=== PATIENT | female | born 1990 | race Caucasian/White ===

== ENCOUNTER 2022-02-06 14:03 | Emergency (ER) | payer OTHER ==
[~2022-02-06] VITALS: Ht 157.5 cm; Wt 111.8 kg
[~2022-02-06 14:03] MED LIST: BUSP10TA; CLAR10CA3 PO; DIVA500T94; DULO1CAP4 PO; DULO1CAP6; FAMO20TA PO; PRED20TA PO; PROAAER10 INH; TOPI25TA10 PO
[2022-02-06 16:43] VITALS: BP 133/9
== END 2022-02-06 16:44 | disposition home or self-care (01) ==
LOC: M ED 14:03
DX: R07.89 Other chest pain (principal); K21.9 Gastro-esophageal reflux disease without esophagitis; F41.9 Anxiety disorder, unspecified; F32.9 Major depressive disorder, single episode, unspecified; Z88.0 Allergy status to penicillin

== ENCOUNTER → 2023-04-01 | Outpatient (REF) ==
[2023-04-01 15:21] LABS: RSV AMPLIFICATION NEGATIVE (NEGATIVE)
== END ==
LOC: M EMP 13:37
PROVIDERS: ATTEND Family Medicine
DX: Z11.52 Encounter for screening for COVID-19 (principal)

== ENCOUNTER → 2023-05-08 | Outpatient (REF) | LOC: M EMP 11:19 | PROVIDERS: ATTEND Family Medicine | DX: Z11.52 Encounter for screening for COVID-19 (principal) ==

== ENCOUNTER 2023-07-25 20:56 | Emergency (ER) | payer OTHER ==
[~2023-07-25] VITALS: Ht 157.5 cm; Wt 108.8 kg
[2023-07-25 21:52] LABS: HEMATOCRIT 43.1 % (36.0-47.0); MEAN CORPUSCULAR HEMOGLOBIN 29.2 pg (27.0-33.0); MEAN CORPUSCULAR HGB CONC 32.5 g/dl (32.0-36.5); MEAN CORPUSCULAR VOLUME 89.8 fl (80.0-96.0); PLATELET COUNT, AUTOMATED 297 10^3/uL (150-450); WHITE BLOOD COUNT 13.4 10^3/uL (4.0-10.0)
[2023-07-25 22:17] LABS: BARBITURATES URINE NEGATIVE (NEGATIVE); CANNABINOIDS URINE NEGATIVE (NEGATIVE); COCAINE METABOLITE URINE NEGATIVE (NEGATIVE); METHADONE URINE NEGATIVE (NEGATIVE); OPIATES URINE NEGATIVE (NEGATIVE); PHENCYCLIDINE URINE NEGATIVE (NEGATIVE)
[2023-07-25 22:18] LABS: AMPHETAMINES LEVEL URINE NEGATIVE (NEGATIVE); BENZODIAZEPINES URINE NEGATIVE (NEGATIVE)
[2023-07-25 22:20] LABS: ETHYL ALCOHOL (ETHANOL) < 0.003 % (0.000-0.010)
[2023-07-25 22:21] LABS: HCG, SERUM QUALITATIVE NEGATIVE (NEGATIVE); SALICYLATE LEVEL < 3.0 MG/DL (<30)
[2023-07-25 22:22] LABS: ACETAMINOPHEN LEVEL < 2.0 UG/ML (10.0-20.0); ALBUMIN 3.7 G/DL (3.2-5.2); ALKALINE PHOSPHATASE 85 U/L (46-116); ALT/SGPT 17 U/L (7.0-40); AST/SGOT 8 U/L (<34); BILIRUBIN,DIRECT 0.1 MG/DL (<0.4); BILIRUBIN,TOTAL 0.3 MG/DL (0.3-1.2); BLOOD UREA NITROGEN 11 MG/DL (9-23); CALCIUM LEVEL 9.4 MG/DL (8.5-10.1); CARBON DIOXIDE LEVEL 28 MMOL/L (20-31); CHLORIDE LEVEL 105 MMOL/L (98-107); GLOMERULAR FILTRATION RATE > 60.0 (>60); GLUCOSE, FASTING 104 MG/DL (60-100); POTASSIUM SERUM 3.7 MMOL/L (3.5-5.1); SODIUM LEVEL 142 MMOL/L (136-145); TOTAL PROTEIN 7.3 G/DL (5.7-8.2)
[2023-07-25 22:23] LABS: THYROID STIMULATING HORMONE 3.328 uIU/ML (0.55-4.78)
[2023-07-25] MEDS ORDERED: PROP60CA PO (23:15)
[2023-07-25] MEDS ORDERED: FAMO40TA3 PO (23:15)
[2023-07-25] MEDS ORDERED: TRAZ1TAB10 PO (23:15)
[2023-07-25] MEDS ORDERED: LORA-622 PO (23:15)
[2023-07-25] MEDS ORDERED: BUPR150T12 PO (23:15)
[2023-07-25] MEDS ORDERED: PANT40TA29 PO (23:15)
[2023-07-25] MEDS ORDERED: HOME MED LIST COMPLETE! XX SCH (23:15)
[2023-07-26] MEDS: PANTOPRAZOLE 40MG TAB (PROTONIX) PO SCH (11:44)
[2023-07-26] MEDS: LORATADINE 10 MG TAB PO SCH (11:44)
[2023-07-26] MEDS: buPROPion **XL** TABLET 150MG (WELLBUTRIN XL) PO SCH (11:44)
[2023-07-26] MEDS: PROPRANOLOL 60MG LA CAP PO SCH (11:48)
[2023-07-26] MEDS: traZODone 50 MG TAB PO SCH (22:49)
[2023-07-26] MEDS: FAMOTIDINE 20 MG TAB PO SCH (22:50)
[2023-07-27] MEDS: LORATADINE 10 MG TAB PO SCH (07:25)
[2023-07-27] MEDS: PANTOPRAZOLE 40MG TAB (PROTONIX) PO SCH (07:25)
[2023-07-27] MEDS: buPROPion **XL** TABLET 150MG (WELLBUTRIN XL) PO SCH (07:25)
[2023-07-27] MEDS: PROPRANOLOL 60MG LA CAP PO SCH (09:32)
[2023-07-27] MEDS: traZODone 50 MG TAB PO SCH (21:00)
[2023-07-27] MEDS: FAMOTIDINE 20 MG TAB PO SCH (21:14)
[2023-07-28] MEDS: PANTOPRAZOLE 40MG TAB (PROTONIX) PO SCH (09:46)
[2023-07-28] MEDS: buPROPion **XL** TABLET 150MG (WELLBUTRIN XL) PO SCH (09:46)
[2023-07-28] MEDS: LORATADINE 10 MG TAB PO SCH (09:46)
[2023-07-28 10:23] VITALS: BP 128/69
[2023-07-28] MEDS: PROPRANOLOL 60MG LA CAP PO SCH (10:23)
[2023-07-28] MEDS: traZODone 50 MG TAB PO SCH (22:18)
[2023-07-28] MEDS: FAMOTIDINE 20 MG TAB PO SCH (22:18)
[2023-07-29] MEDS: PANTOPRAZOLE 40MG TAB (PROTONIX) PO SCH (09:30)
[2023-07-29] MEDS: buPROPion **XL** TABLET 150MG (WELLBUTRIN XL) PO SCH (09:30)
[2023-07-29] MEDS: LORATADINE 10 MG TAB PO SCH (09:30)
[2023-07-29 11:39] VITALS: BP 118/86; TEMP 98; O2SAT 97
== END 2023-07-29 12:06 | disposition home or self-care (01) ==
LOC: M ED 20:56
DX: R45.851 Suicidal ideations (principal); F32.A Depression, unspecified; F41.9 Anxiety disorder, unspecified; Z88.0 Allergy status to penicillin